=== PATIENT | male | born 1995 | race Caucasian/White ===

== ENCOUNTER 2021-06-18 18:26 | Emergency (ER) | payer MEDICAID, OTHER ==
[~2021-06-18] VITALS: Ht 172 cm; Wt 80.0 kg
[2021-06-18 18:53] LABS: AMPHETAMINE SCREEN, URINE NEGATIVE (NEGATIVE); BARBITURATE SCREEN URINE NEGATIVE (NEGATIVE); BENZODIAZEPINES SCREEN URINE NEGATIVE (NEGATIVE); CANNABINOID SCREEN, URINE POSITIVE (NEGATIVE); CLARITY,URINE SLIGHTLY CLOUDY; COCAINE SCREEN URINE NEGATIVE (NEGATIVE); COLOR,URINE DARK YELLOW; GLUCOSE, URINE (UA) NEGATIVE (NEGATIVE); KETONES,URINE TRACE (NEGATIVE); METHADONE STAT NEGATIVE (NEGATIVE); METHAMPHETAMINE SCREEN URINE S NEGATIVE (NEGATIVE); OPIATE SCREEN URINE NEGATIVE (NEGATIVE); OXYCODONE STAT NEGATIVE (NEGATIVE); PH,URINE 5.5 (5-9); PROPOXYPHENE STAT NEGATIVE (NEGATIVE); PROTEIN,URINE TRACE (NEGATIVE); TRICYCLIC ANTIDEPRESSANTS SCRE NEGATIVE (NEGATIVE)
[2021-06-18 18:54] LABS: BACTERIA,URINE TRACE /HPF; BILIRUBIN,URINE 1+ (NEGATIVE); LEUKOCYTE ESTERASE ,URINE NEGATIVE (NEGATIVE); NITRITE,URINE NEGATIVE (NEGATIVE); RBC,URINE 0-2 /HPF; RENAL EPITHELIAL CELLS,URINE 0-2 /HPF; WBC,URINE 0-2 /HPF
[2021-06-18 18:55] LABS: HYALINE CASTS, URINE 0-2 /LPF
[2021-06-18 19:05] LABS: BASOPHILS % (AUTO) 1 % (0-10); EOSINOPHILS % (AUTO) 0 % (0-10); HEMATOCRIT 51 % (40-54); HEMOGLOBIN 17.5 g/dL (13.3-17.7); LYMPHOCYTES # (AUTO) 2.5 X 10^3 (1.0-4.0); LYMPHOCYTES % (AUTO) 22 % (12-44); MEAN CORPUSCULAR HEMOGLOBIN 29 pg (25-34); MEAN CORPUSCULAR HGB CONC 35 g/dL (32-36); MEAN CORPUSCULAR VOLUME 83 fL (80-99); MEAN PLATELET VOLUME 9.4 fL (9.0-12.2); MONOCYTES # (AUTO) 0.6 X 10^3 (0.0-1.0); MONOCYTES % (AUTO) 5 % (0-12); NEUTROPHILS # (AUTO) 8.2 X 10^3 (1.8-7.8); NEUTROPHILS % (AUTO) 72 % (42-75); PLATELET COUNT 309 10^3/uL (130-400); WHITE BLOOD COUNT 11.3 10^3/uL (4.3-11.0)
[2021-06-18 19:06] LABS: BASOPHILS # (AUTO) 0.1 10^3/uL (0.0-0.1)
--- NOTE | 2021-06-18 19:15 | ED Psychosocial ---
General Chief Complaint: Psych/Social Disorder Stated Complaint: PSYCH EVAL Nursing Triage Note: PTS MOM CALLED THE PD AND WANTED HIM REMOVED FROM HER HOUSE BC SHE DOES NOT WANT HIM TO LIVE THERE ANYMORE SO HE STATES HE IS HOMELESS. NO SUICIDAL OR HOMICIDAL IDEATIONS. HE JUST WANTS A PSYCH EVAL HOPING HIS MOM WILL LET HIM MOVE BACK IN. History of Present Illness Date Seen by Provider: Jun 18, 2021 Time Seen by Provider: 19:00 Initial Comments 25-year-old male presents by [place] [employer] after getting a phone call that his mother wanted him out of the house and wanted him screened for psychiatric problems. Patient without suicidal or homicidal ideation. Denies history of psychosocial problems, denies alcohol or drug abuse. Denies fighting with his mother other than verbally. He is 25 years old and recently moved back in with his mother because he states he was homeless. Now she wants about the house according to patient. He is willing to be screened for psychiatric problems to prove to her that he is safe to live in her house Allergies and Home Medications Patient Home Medication List Home Medication List Reviewed: Yes Review of Systems Constitutional: no symptoms reported Respiratory: no symptoms reported Cardiovascular: no symptoms reported Gastrointestinal: no symptoms reported Genitourinary: no symptoms reported Musculoskeletal: no symptoms reported Psychiatric/Neurological: No Symptoms Reported, See HPI Past Tzfxjbe-[id number] Hx Patient Social History Tobacco Use?: Yes Tobacco type used: Cigarettes Use of E-Cig and/or Vaping dev: No Substance use?: Yes Substance type: Marijuana Alcohol Use?: Yes Alcohol type: Beer Alcohol Frequency: Once in a while Pt feels they are or have been: No Physical Exam Vital Signs - First Documented 06/18/21 18:32 Temp 36.3 Pulse 113 Resp 16 B/P (MAP) 128/89 (102) Pulse Ox 97 O2 Delivery Room Air Capillary Refill : Less Than 3 Seconds Height, Weight, BMI Height: '" Weight: lbs. oz. kg; 27.00 BMI Method: General Appearance: WD/WN, no apparent distress HEENT: PERRL/EOMI, normal ENT inspection Respiratory: chest non-tender, lungs clear Cardiovascular: regular rate, rhythm, no edema Gastrointestinal: non tender, soft Extremities: normal range of motion, non-tender Neurologic/Psychiatric: no motor/sensory deficits, alert, normal mood/affect Appearance/Memory: appropriate appearance Behavior/Eye Contact: cooperative Thoughts/Hallucinations: normal thought pattern Skin: normal color, warm/dry Progress/Results/Core Measures Results/Orders Lab Results Laboratory Tests Test 06/18/21 18:32 06/18/21 18:45 Range/Units Urine Color DARK YELLOW Urine Clarity SLIGHTLY CLOUDY Urine pH 5.5 5-9 Urine Specific [place] >=1.030 1.016-1.022 Urine Protein TRACE H NEGATIVE Urine Glucose (UA) NEGATIVE NEGATIVE Urine Ketones TRACE H NEGATIVE Urine Nitrite NEGATIVE NEGATIVE Urine Bilirubin 1+ H NEGATIVE Urine Urobilinogen 1.0 < = 1.0 MG/DL Urine Leukocyte Esterase NEGATIVE NEGATIVE Urine RBC (Auto) NEGATIVE NEGATIVE Urine RBC 0-2 /HPF Urine WBC 0-2 /HPF Urine Squamous Epithelial Cells NONE /HPF Urine Renal Epithelial Cells 0-2 /HPF Urine Crystals NONE /LPF Urine Bacteria TRACE /HPF Urine Casts PRESENT /LPF Urine Hyaline Casts 0-2 H /LPF Urine Mucus LARGE H /LPF Urine Culture Indicated NO Urine Opiates Screen NEGATIVE NEGATIVE Urine Oxycodone Screen NEGATIVE NEGATIVE Urine Methadone Screen NEGATIVE NEGATIVE Urine Propoxyphene Screen NEGATIVE NEGATIVE Urine Barbiturates Screen NEGATIVE NEGATIVE Ur Tricyclic Antidepressants Screen NEGATIVE NEGATIVE Urine Phencyclidine Screen NEGATIVE NEGATIVE Urine Amphetamines Screen NEGATIVE NEGATIVE Urine Methamphetamines Screen NEGATIVE NEGATIVE Urine Benzodiazepines Screen NEGATIVE NEGATIVE Urine Cocaine Screen NEGATIVE NEGATIVE Urine Cannabinoids Screen POSITIVE H NEGATIVE White Blood Count 11.3 H 4.3-11.0 10^3/uL Red Blood Count 6.09 H 4.30-5.52 10^6/uL Hemoglobin 17.5 13.3-17.7 g/dL Hematocrit 51 40-54 % Mean Corpuscular Volume 83 80-99 fL Mean Corpuscular Hemoglobin 29 25-34 pg Mean Corpuscular Hemoglobin Concent 35 32-36 g/dL Red Cell Distribution Width 13.2 10.0-14.5 % Platelet Count 309 130-400 10^3/uL Mean Platelet Volume 9.4 9.0-12.2 fL Immature Granulocyte % (Auto) 0 % Neutrophils (%) (Auto) 72 42-75 % Lymphocytes (%) (Auto) 22 12-44 % Monocytes (%) (Auto) 5 0-12 % Eosinophils (%) (Auto) 0 0-10 % Basophils (%) (Auto) 1 0-10 % Neutrophils # (Auto) 8.2 H 1.8-7.8 X 10^3 Lymphocytes # (Auto) 2.5 1.0-4.0 X 10^3 Monocytes # (Auto) 0.6 0.0-1.0 X 10^3 Eosinophils # (Auto) 0.0 0.0-0.3 10^3/uL Basophils # (Auto) 0.1 0.0-0.1 10^3/uL Immature Granulocyte # (Auto) 0.0 0.0-0.1 10^3/uL Sodium Level 140 135-145 MMOL/L Potassium Level 4.0 3.6-5.0 MMOL/L Chloride Level 103 98-107 MMOL/L Carbon Dioxide Level 23 21-32 MMOL/L Anion Gap 14 5-14 MMOL/L Blood Urea Nitrogen 9 7-18 MG/DL Creatinine 1.18 0.60-1.30 MG/DL Estimat Glomerular Filtration Rate 76 BUN/Creatinine Ratio 8 Glucose Level 118 H 70-105 MG/DL Calcium Level 9.7 8.5-10.1 MG/DL Corrected Calcium 8.5-10.1 MG/DL Total Bilirubin 0.5 0.1-1.0 MG/DL Aspartate Amino Transf (AST/SGOT) 18 5-34 U/L Alanine Aminotransferase (ALT/SGPT) 20 0-55 U/L Alkaline Phosphatase 64 40-136 U/L Total Protein 7.9 6.4-8.2 GM/DL Albumin 4.9 H 3.2-4.5 GM/DL Salicylates Level < 0.3 L 5.0-20.0 MG/DL Acetaminophen Level < 10 L 10-30 UG/ML Serum Alcohol < 10 <10 MG/DL My Orders Orders - ROVENSTINE,ALLIE L DO Ua Culture If Indicated (06/18/21 18:34) Cbc With Automated Diff (06/18/21 18:34) Comprehensive Metabolic Panel (06/18/21 18:34) Alcohol (06/18/21 18:34) Drug Screen Stat (Urine) (06/18/21 18:34) Acetaminophen (06/18/21 18:34) Salicylate (06/18/21 18:34) Ekg Tracing (06/18/21 18:34) Bh Status Checks/Observation Q1HR (06/18/21 18:34) Vital Signs/I&O 06/18/21 18:32 Temp 36.3 Pulse 113 Resp 16 B/P (MAP) 128/89 (102) Pulse Ox 97 O2 Delivery Room Air Blood Pressure Mean: 102 Departure Impression Primary Impression: Depression Qualified Codes: F32.9 - Major depressive disorder, single episode, unspecified Disposition: 01 HOME, SELF-CARE Condition: Stable Departure-Patient Inst. Decision time for Depature: 20:09 Referrals: [facility] [place] NO,LOCAL PHYSICIAN (PCP) Primary Care Physician Patient Instructions: Tips for How to Help Your Mood Add. Discharge Instructions: follow up with a local mental health provider in 1 week All discharge instructions reviewed with patient and/or family. Voiced understanding. ALLIE VAZQUEZ DO Jun 18, 2021 19:14
[2021-06-18 19:29] LABS: CARBON DIOXIDE 23 MMOL/L (21-32); CHLORIDE 103 MMOL/L (98-107); SODIUM 140 MMOL/L (135-145)
[2021-06-18 19:30] LABS: ACETAMINOPHEN < 10 UG/ML (10-30); ALANINE AMINOTRANSFERASE 20 U/L (0-55); ALBUMIN 4.9 GM/DL (3.2-4.5); ALKALINE PHOSPHATASE 64 U/L (40-136); BILIRUBIN,TOTAL 0.5 MG/DL (0.1-1.0); BUN/CREATININE RATIO 8; CALCIUM 9.7 MG/DL (8.5-10.1); CREATININE SERUM 1.18 MG/DL (0.60-1.30); GFR ESTIMATED 76; GLUCOSE 118 MG/DL (70-105); SALICYLATE < 0.3 MG/DL (5.0-20.0); TOTAL PROTEIN 7.9 GM/DL (6.4-8.2)
[2021-06-18 20:21] VITALS: BP 124/68
== END 2021-06-18 20:21 | disposition home or self-care (01) ==
LOC: ER FS 18:28
DX: F32.9 Major depressive disorder, single episode, unspecified (principal); F17.210 Nicotine dependence, cigarettes, uncomplicated
CPT/HCPCS: 36415; 80053; 80306; 81000; 85025; G0480 ×3; 80320; 80329; 93005